=== PATIENT | female | born 2000 | race Caucasian/White ===

== ENCOUNTER → 2023-10-28 | Outpatient (CLI) | payer OTHER ==
[2023-10-28 18:50] LABS: Hepatitis B Surface Antigen Nonreactive (Nonreactive); Hepatitis C IgG Antibody Nonreactive (Nonreactive)
[2023-10-28 21:41] LABS: HIV 2 AB Non-Reactive (Non-Reactive); HIV AB P24 Non-Reactive (Non-Reactive); HIV P24 AG Non-Reactive (Non-Reactive)
== END ==
LOC: LABWHC1 15:05
PROVIDERS: ATTEND Midwife
DX: Z11.3 Encounter for screening for infections with a predominantly sexual mode of transmission (principal); Z72.51 High risk heterosexual behavior
CPT/HCPCS: 36415; 86780; 86803; 87340; 87390; 87529

== ENCOUNTER → 2024-03-09 | Outpatient (CLI) | payer SELFPAY ==
--- NOTE | 2024-03-09 12:16 | US ---
EXAMINATION TYPE: US pelvic complete DATE OF EXAM: 03/09/2024 COMPARISON: NONE CLINICAL INDICATION: Female, 23 years old with history of R10.2 PELVIC AND PERINEAL PAIN; 2 episodes of extreme pelvic pain last year, pain comes and goes, h/o right ovarian cyst last year, G0 TECHNIQUE: TA. Transabdominal grayscale sonographic images of the pelvis were acquired. Doppler imaging: Not performed. FINDINGS: Date of LMP: 02/13/2024 EXAM MEASUREMENTS: Uterus: 7.0 x 5.0 x 2.8 cm Endometrial Stripe: 0.5 cm Right Ovary: 2.4 x 1.9 x 1.6 cm Left Ovary: 3.5 x 2.7 x 1.8 cm 1. Uterus: Anteverted and otherwise wnl 2. Endometrium: wnl 3. Right Ovary: wnl 4. Left Ovary: wnl 5. Bilateral Adnexa: wnl 6. Posterior cul-de-sac: wnl IMPRESSION: No specific sonographic abnormality of the pelvis on transabdominal scanning. [facility], Workstation: [id number], 03/09/2024 12:14 PM
== END | disposition home or self-care (01) ==
LOC: RADUSWWP 09:55
PROVIDERS: ATTEND Family Medicine
DX: R10.2 Pelvic and perineal pain (principal); Z87.42 Personal history of other diseases of the female genital tract
CPT/HCPCS: 76856